=== PATIENT | male | born 1980 | race Caucasian/White ===

== ENCOUNTER 2018-06-07 15:41 | Observation (INO) ==
--- NOTE | 2018-06-07 17:50 | Emergency Department Note ---
Disposition Clinical Impression: Dyspnea Disposition: Still a Patient Condition: Fair Referrals: Valencia Izaguirre [Primary Care Provider] - Forms: ED Satisfaction Letter SOB HPI - General Chief Complaint: ED Shortness of Breath/Dyspnea Stated Complaint: KYLE Time Seen by Provider: 06/07/18 17:48 Source: patient Limitations: no limitations Nursing Notes Reviewed: Yes Vital Signs Reviewed: Yes - History of Present Illness Patient is a 37-year-old male who presents to [facility] ED with a chief complaint of chest pain and difficulty breathing. States his symptoms started around Thursday with the chest pain. States the pain is worse with deep breathing and has some shortness of breath especially with exertion. Patient does have a history of DVT. Family history significant for multiple pulmonary embolisms and DVTs. No recent surgeries. Pt Subjective Complaint: shortness of breath, pain with inspiration Onset (ago): day(s) Context: recent illness Severity: moderate Consistency/Duration: gradually worsening Improves with: nothing Worsens with: exertion Known history of: DVT Associated symptoms: Reports: chest pain Treatment prior to arrival: none Cough present: No - Related Data Allergies Allergy/AdvReac Type Severity Reaction Status Date / Time No Known Allergies Allergy Unverified 06/07/18 16:13 All systems ED: reviewed and negative except as stated. Past Medical History - Past Medical History Attestation: Yes The following information was validated with the patient. Source: patient Medical history: Reports: DVT, other Psychiatric history: Reports: no psych history - Social History Smoking Status: Current some day smoker Smokeless Tobacco Status: No Alcohol use: Reports: none Drug use: Reports: none Physical Exam - General Limitations: no limitations General appearance: alert - Head Head exam: atraumatic, normocephalic, normal inspection - Eye Eye exam: Present: EOMI - ENT ENT exam: normal exam, normal oropharynx, mucous membranes moist - Neck Neck exam: Present: normal inspection, full ROM, trachea midline - Chest Chest inspection: Present: normal inspection, symmetric chest wall rise - Respiratory Respiratory exam: Present: normal lung sounds bilaterally - Cardiovascular Cardiovascular exam: Present: regular rate, normal rhythm, normal heart sounds - Abdominal Exam Abdominal exam: Present: soft, Non-Tender. Absent: tenderness, distention, guarding, rebound, rigidity - Extremities Exam Extremities exam: Present: normal inspection, full ROM. Absent: tenderness, pedal edema - Neurological Exam Neurological exam: Present: alert, oriented X3 - Psychiatric Psychiatric exam: Present: normal affect, normal mood - Skin Skin exam: Present: warm, dry, intact, normal color Course Course Narrative: Patient seen and examined. Chest pain and difficulty breathing. Basic lab work , d-dimer level, EKG and chest x-ray ordered in triage. - Reevaluation(s) Reevaluation #1: Patient's d-dimer level came back elevated at almost 15,000. Concern for possible pulmonary embolus. His oxygen saturation currently is 95% on room air. He is borderline tachycardic with heart rate 90s to low 100s. CTA of the chest ordered. Patient will be signed out to oncoming physician Dr. Pearce. Time: 18:36 Vital Signs Temperature 99.3 F 06/07/18 16:13 Pulse Rate 90 06/07/18 16:13 Respiratory Rate 20 06/07/18 16:13 Blood Pressure 115/78 06/07/18 16:13 O2 Sat by Pulse Oximetry 96 06/07/18 16:13 Temperature 99.3 F 06/07/18 16:13 Pulse Rate 107 06/07/18 17:59 Respiratory Rate 20 06/07/18 17:59 Blood Pressure 127/93 06/07/18 17:59 O2 Sat by Pulse Oximetry 95 06/07/18 17:59 Oxygen Delivery Oxygen Delivery Room Air Shortness of Breath/Dyspnea - Medical Records Medical records reviewed: Yes I reviewed the patient's medical records. - Lab Data Lab results reviewed: Yes I reviewed the patient's lab results. Result diagrams: 06/07/18 17:03 06/07/18 17:03 Lab Results 06/07/18 06/07/18 06/07/18 Range/Units 17:03 17:03 17:03 WBC 9.0 (4.3-11.1) K/mcL RBC 5.85 H (4.19-5.50) M/mcL Hgb 16.1 (12.9-16.9) g/dL Hct 46.4 (37.5-50.1) % MCV 79.3 L (83.0-100.0) fL MCH 27.5 L (28.0-33.3) pg MCHC 34.7 (31.6-35.5) g/dL RDW 12.6 (11.5-14.5) % Plt Count 201 (140-400) K/mcL MPV 10.2 (9.4-12.4) fL Immature Gran % 0.4 (0-4) % Seg Neutrophils % 57.8 % Lymphocytes % 19.7 % Monocytes % 8.5 % Eosinophils % 12.5 % Basophils % 1.1 % Neutrophils # 5.2 (1.6-8.9) K/mcL Lymphocytes # 1.8 (0.6-4.6) K/mcL Monocytes # 0.8 (0.0-1.3) K/mcL Eosinophils # 1.1 H (0.0-0.6) K/mcL Basophils # 0.1 (0.0-0.2) K/mcL D-Dimer 07535 H (0-500) ng/mLFEU Sodium 137 (136-145) mEq/L Potassium 3.9 (3.5-5.1) mEq/L Chloride 104 (98-107) mEq/L Carbon Dioxide 25 (23-29) mEq/L BUN 14 (6-20) mg/dL Creatinine 1.03 (0.70-1.30) mg/dL Est GFR ( Amer) > 60 (> 60) Est GFR (Non-Af Amer) > 60 (> 60) BUN/Creatinine Ratio 14 (6-26) Glucose 117 H (70-105) mg/dL Calculated Osmolality 286 (280-300) Calcium 9.4 (8.6-10.3) mg/dL Total Bilirubin 0.7 (0.3-1.0) mg/dL AST 31 (13-39) Units/L ALT 42 (7-52) Units/L Alkaline Phosphatase 79 (34-104) Units/L Serum Total Protein 7.8 (6.4-8.9) g/dL Albumin 4.4 (3.5-5.7) g/dL Globulin 3.4 (2.4-3.5) g/dL Albumin/Globulin Ratio 1.3 (1.1-2.2) - Radiology Data Radiology results reviewed: Yes I reviewed the patient's radiology results. Chest X-Ray 06/07/18 16:19 IMPRESSION: No acute cardiopulmonary process. D/ / 06/07/2018 16:39:37 Gasper Posey MD / sonia Interpreting Provider: Gasper Posey MD - EKG Data EKG attestation: Yes I reviewed and interpreted this EKG. EKG results narrative: EKG done at 1617 shows normal sinus rhythm with a rate of [address] elevation or depression. Normal axis. Prominent Q-wave noted in lead 3. Attestation Statement - Attestation Attestation: I, Vadim Jesus, examined this patient and my medical decision-making was reviewed with the [employer] PERSON/PA/Advanced Practice Nurse/Resident Physician. I agree with the documented findings, disposition and treatment plan as described except to the extent set forth below. 37-year-old presents emergency Department with concerns of chest pain and shortness of breath. Patient has a history of DVT and a strong family history of blood clots. He has been short of breath increasing over the past few days. He previously took anticoagulation for DVT however he is not currently taking anticoagulation medication. Patient has significantly elevated d-dimer. Patient care transferred pending CTA of the chest to rule out PE. Care transferred to Dr. Abernathy pending further care and evaluation and disposition.
[2018-06-07 17:57] LABS: Basophils # 0.1 K/mcL (0.0-0.2); Basophils % 1.1 %; Eosinophils # 1.1 K/mcL (0.0-0.6); Eosinophils % 12.5 %; Hematocrit 46.4 % (37.5-50.1); Hemoglobin 16.1 g/dL (12.9-16.9); Immature Granulocytes % 0.4 % (0-4); Lymphocytes # 1.8 K/mcL (0.6-4.6); Lymphocytes % 19.7 %; Mean Corpuscular HGB Conc 34.7 g/dL (31.6-35.5); Mean Corpuscular Hemoglobin 27.5 pg (28.0-33.3); Mean Corpuscular Volume 79.3 fL (83.0-100.0); Mean Platelet Volume 10.2 fL (9.4-12.4); Monocytes # 0.8 K/mcL (0.0-1.3); Monocytes % 8.5 %; Neutrophils # 5.2 K/mcL (1.6-8.9); Platelet Count 201 K/mcL (140-400); Red Blood Count 5.85 M/mcL (4.19-5.50); Red Cell Distribution Width 12.6 % (11.5-14.5); Segmented Neutrophils % 57.8 %
[2018-06-07 18:15] LABS: Alanine Aminotransferase 42 Units/L (7-52); Albumin 4.4 g/dL (3.5-5.7); Albumin/Globulin Ratio 1.3 (1.1-2.2); Alkaline Phosphatase 79 Units/L (34-104); Aspartate Amino Transferase 31 Units/L (13-39); BUN/Creatinine Ratio 14 (6-26); Bilirubin,Total 0.7 mg/dL (0.3-1.0); Blood Urea Nitrogen 14 mg/dL (6-20); Calcium 9.4 mg/dL (8.6-10.3); Carbon Dioxide 25 mEq/L (23-29); Chloride 104 mEq/L (98-107); Globulin 3.4 g/dL (2.4-3.5); Glucose 117 mg/dL (70-105); Osmolality,Calculated 286 (280-300); Potassium 3.9 mEq/L (3.5-5.1); Sodium 137 mEq/L (136-145); Total Protein 7.8 g/dL (6.4-8.9); eGFR For Non-African Americans > 60 (> 60)
[2018-06-07] MEDS: Isovue-370 500 ML INFUS..BTL IV ONE ×2 (19:15→19:18)
--- NOTE | 2018-06-07 19:18 | Emergency Department Note ---
Disposition Clinical Impression: Dyspnea Qualifiers: Dyspnea type: unspecified Qualified Code(s): R06.00 - Dyspnea, unspecified Pulmonary embolism Qualifiers: Pulmonary embolism type: other Chronicity: unspecified Acute cor pulmonale presence: with acute cor pulmonale Qualified Code(s): I26.09 - Other pulmonary embolism with acute cor pulmonale Disposition: Admitted As Inpatient Condition: Fair Referrals: Valencia Izaguirre [Primary Care Provider] - Forms: ED Satisfaction Letter Time of Disposition: 22:13 General Adult HPI - General Chief complaint: ED Shortness of Breath/Dyspnea Stated complaint: KYLE Time Seen by Provider: 06/07/18 17:48 Source: patient Limitations: no limitations - History of Present Illness HPI Narrative: Patient seen and examined. Patient was signed out by the prior provider please see their doctor patient with history of physical. Briefly, the patient is a 37 -year-old male who presents with dyspnea mostly with exertion over the past few days. Does have a family history of clotting disorders. At the time my evaluation the patient's resting comfortably in bed. Awaiting CTA chest. Pain Scale: 0 - Related Data Home Medications Medication Instructions Recorded Confirmed Febuxostat [Uloric] 40 mg PO DAILY 06/07/18 06/07/18 Indomethacin [Indomethacin] 50 mg PO TID PRN 06/07/18 06/07/18 Omeprazole [PriLOSEC] 20 mg PO DAILY 06/07/18 06/07/18 Allergies Allergy/AdvReac Type Severity Reaction Status Date / Time No Known Allergies Allergy Verified 06/07/18 20:36 Past Medical History - Past Medical History Medical history: Reports: DVT, other Psychiatric history: Reports: no psych history - Social History Smoking Status: Current some day smoker Smokeless Tobacco Status: No Alcohol use: Reports: none Drug use: Reports: none Physical Exam - General Limitations: no limitations General appearance: alert, in no apparent distress - Head Head exam: atraumatic, normal inspection - Eye Eye exam: Present: normal appearance - ENT ENT exam: normal exam - Neck Neck exam: Present: normal inspection, trachea midline - Chest Chest inspection: Present: normal inspection, symmetric chest wall rise - Respiratory Respiratory exam: Present: normal lung sounds bilaterally. Absent: respiratory distress - Cardiovascular Cardiovascular exam: Present: regular rate, normal rhythm - Abdominal Exam Abdominal exam: Present: soft, Non-Tender - Extremities Exam Extremities exam: Present: normal inspection. Absent: pedal edema - Back Exam Back exam: Present: normal inspection - Neurological Exam Neurological exam: Present: alert, oriented X3 - Skin Skin exam: Present: warm, dry, intact, normal color Course Course Narrative: Patient seen and examined. Patient's resting comfortably. No acute distress. No needs at this time. - Reevaluation(s) Reevaluation #1: Patient seen and examined. Updated on plan of care. Time: 20:27 Vital Signs Temperature 99.3 F 06/07/18 16:13 Pulse Rate 90 06/07/18 16:13 Respiratory Rate 20 06/07/18 16:13 Blood Pressure 115/78 06/07/18 16:13 O2 Sat by Pulse Oximetry 96 06/07/18 16:13 Temperature 99.3 F 06/07/18 16:13 Pulse Rate 74 06/07/18 21:29 Respiratory Rate 18 06/07/18 21:29 Blood Pressure 123/74 06/07/18 21:29 O2 Sat by Pulse Oximetry 95 06/07/18 21:29 Oxygen Delivery Oxygen Delivery Room Air Medical Decision Making - [facility] Narrative Medical decision making narrative: 37 year old male persists for evaluation of dyspnea. Patient was signed by the prior doctor. Patient is noted to have extensive bilateral PEs. Patient does have some right heart strain or on CT findings however but does not have lab values consistent with right heart strain. Patient's vitals are stable. Patient does not have a massive PE. Patient does have a submassive PE. Patient is appropriate for admission to the stepdown with cardiopulmonary monitoring. Patient's aware of this plan of care. Patient would benefit from an echo as well as hematology evaluation for coagulopathy. Patient would also benefit from lower extremity Doppler to ensure the extent of the clot burden. - Lab Data Lab results reviewed: Yes I reviewed the patient's lab results. Result diagrams: 06/07/18 19:48 06/07/18 17:03 Lab Results 06/07/18 06/07/18 06/07/18 Range/Units 17:03 17:03 17:03 WBC 9.0 (4.3-11.1) K/mcL RBC 5.85 H (4.19-5.50) M/mcL Hgb 16.1 (12.9-16.9) g/dL Hct 46.4 (37.5-50.1) % MCV 79.3 L (83.0-100.0) fL MCH 27.5 L (28.0-33.3) pg MCHC 34.7 (31.6-35.5) g/dL RDW 12.6 (11.5-14.5) % Plt Count 201 (140-400) K/mcL MPV 10.2 (9.4-12.4) fL Immature Gran % 0.4 (0-4) % Seg Neutrophils % 57.8 % Lymphocytes % 19.7 % Monocytes % 8.5 % Eosinophils % 12.5 % Basophils % 1.1 % Neutrophils # 5.2 (1.6-8.9) K/mcL Lymphocytes # 1.8 (0.6-4.6) K/mcL Monocytes # 0.8 (0.0-1.3) K/mcL Eosinophils # 1.1 H (0.0-0.6) K/mcL Basophils # 0.1 (0.0-0.2) K/mcL PT (9.4-12.1) Seconds INR D-Dimer 24598 H (0-500) ng/mLFEU Heparin Anti-Xa, Unfract (0.30-0.70) IU/mL Sodium 137 (136-145) mEq/L Potassium 3.9 (3.5-5.1) mEq/L Chloride 104 (98-107) mEq/L Carbon Dioxide 25 (23-29) mEq/L BUN 14 (6-20) mg/dL Creatinine 1.03 (0.70-1.30) mg/dL Est GFR ( Amer) > 60 (> 60) Est GFR (Non-Af Amer) > 60 (> 60) BUN/Creatinine Ratio 14 (6-26) Glucose 117 H (70-105) mg/dL Calculated Osmolality 286 (280-300) Calcium 9.4 (8.6-10.3) mg/dL Total Bilirubin 0.7 (0.3-1.0) mg/dL AST 31 (13-39) Units/L ALT 42 (7-52) Units/L Alkaline Phosphatase 79 (34-104) Units/L B-Natriuretic Peptide (Less than 100) pg/mL Serum Total Protein 7.8 (6.4-8.9) g/dL Albumin 4.4 (3.5-5.7) g/dL Globulin 3.4 (2.4-3.5) g/dL Albumin/Globulin Ratio 1.3 (1.1-2.2) 06/07/18 06/07/18 06/07/18 Range/Units 19:48 19:48 19:48 WBC 7.6 (4.3-11.1) K/mcL RBC 5.30 (4.19-5.50) M/mcL Hgb 14.5 D (12.9-16.9) g/dL Hct 42.1 (37.5-50.1) % MCV 79.4 L (83.0-100.0) fL MCH 27.4 L (28.0-33.3) pg MCHC 34.4 (31.6-35.5) g/dL RDW 12.8 (11.5-14.5) % Plt Count 161 (140-400) K/mcL MPV 10.1 (9.4-12.4) fL Immature Gran % (0-4) % Seg Neutrophils % % Lymphocytes % % Monocytes % % Eosinophils % % Basophils % % Neutrophils # (1.6-8.9) K/mcL Lymphocytes # (0.6-4.6) K/mcL Monocytes # (0.0-1.3) K/mcL Eosinophils # (0.0-0.6) K/mcL Basophils # (0.0-0.2) K/mcL PT 14.7 H (9.4-12.1) Seconds INR 1.3 D-Dimer (0-500) ng/mLFEU Heparin Anti-Xa, Unfract 0.01 L (0.30-0.70) IU/mL Sodium (136-145) mEq/L Potassium (3.5-5.1) mEq/L Chloride (98-107) mEq/L Carbon Dioxide (23-29) mEq/L BUN (6-20) mg/dL Creatinine (0.70-1.30) mg/dL Est GFR ( Amer) (> 60) Est GFR (Non-Af Amer) (> 60) BUN/Creatinine Ratio (6-26) Glucose (70-105) mg/dL Calculated Osmolality (280-300) Calcium (8.6-10.3) mg/dL Total Bilirubin (0.3-1.0) mg/dL AST (13-39) Units/L ALT (7-52) Units/L Alkaline Phosphatase (34-104) Units/L B-Natriuretic Peptide 12 (Less than 100) pg/mL Serum Total Protein (6.4-8.9) g/dL Albumin (3.5-5.7) g/dL Globulin (2.4-3.5) g/dL Albumin/Globulin Ratio (1.1-2.2) - Radiology Data Radiology results reviewed: Yes I reviewed the patient's radiology results. Chest X-Ray 06/07/18 16:19 IMPRESSION: No acute cardiopulmonary process. D/ / 06/07/2018 16:39:37 Gasper Posey MD / sonia Interpreting Provider: Gasper Posey MD Chest CTA 06/07/18 18:32 IMPRESSION: Extensive acute bilateral pulmonary emboli as described above. As described above, there is enlargement of the right ventricle with RV/LV ratio greater than 1. These findings suggest possible right heart strain/elevated right heart pressures. Clinical correlation is recommended. Consider further evaluation with echocardiography to better evaluate heart function. Small area of non solid opacity inferolateral right lower lobe may reflect atelectasis or pulmonary infarct or a small amount of airspace disease. There is a 3 mm size right lower lobe pulmonary nodule. Critical results were called by Dr. Georgi Salmon MD to Dr. Abernathy On 06/07/2018 at 19:48. D/ / 06/07/2018 20:01:42 Georgi Salmon MD / della Interpreting Provider: Georgi Salmon MD berly - Amberly Situation: Demographics Background: Presenting Complaint Assessment: Vital Signs, Course and respsone to treatment, Patient/Family Expectation Recommendation: Barrier(s) to disposition, Recommendation based on pending studies, treatments, or consults SBrett Report Given to: Dr. Jarrod Gaming Repor Time: 22:11
[2018-06-07] MEDS ORDERED: *HR* Heparin 5,000 UNIT/ML VIAL IVP ONE (19:37)
[2018-06-07] MEDS ORDERED: *HR* Heparin 5,000 UNIT/ML VIAL IVP PRN ×2 (19:37)
--- NOTE | 2018-06-07 19:43 | Emergency Department Note ---
Disposition Clinical Impression: Dyspnea Qualifiers: Dyspnea type: unspecified Qualified Code(s): R06.00 - Dyspnea, unspecified Pulmonary embolism Qualifiers: Pulmonary embolism type: other Chronicity: unspecified Acute cor pulmonale presence: with acute cor pulmonale Qualified Code(s): I26.09 - Other pulmonary embolism with acute cor pulmonale Disposition: Admitted As Inpatient Condition: Fair Referrals: Valencia Izaguirre [Primary Care Provider] - Forms: ED Satisfaction Letter General Adult HPI - General Chief complaint: ED Shortness of Breath/Dyspnea Stated complaint: KYLE Time Seen by Provider: 06/07/18 17:48 Source: patient Limitations: no limitations Nursing Notes Reviewed: Yes Vital Signs Reviewed: Yes - History of Present Illness Pain Scale: 0 - Related Data Home Medications Medication Instructions Recorded Confirmed Febuxostat [Uloric] 40 mg PO DAILY 06/07/18 06/07/18 Indomethacin [Indomethacin] 50 mg PO TID PRN 06/07/18 06/07/18 Omeprazole [PriLOSEC] 20 mg PO DAILY 06/07/18 06/07/18 Allergies Allergy/AdvReac Type Severity Reaction Status Date / Time No Known Allergies Allergy Verified 06/07/18 20:36 Past Medical History - Past Medical History Medical history: Reports: DVT, other Psychiatric history: Reports: no psych history - Social History Smoking Status: Current some day smoker Smokeless Tobacco Status: No Alcohol use: Reports: none Drug use: Reports: none Physical Exam - General Limitations: no limitations General appearance: alert Course Vital Signs Temperature 99.3 F 06/07/18 16:13 Pulse Rate 90 06/07/18 16:13 Respiratory Rate 20 06/07/18 16:13 Blood Pressure 115/78 06/07/18 16:13 O2 Sat by Pulse Oximetry 96 06/07/18 16:13 Temperature 99.3 F 06/07/18 16:13 Pulse Rate 74 06/07/18 21:29 Respiratory Rate 18 06/07/18 21:29 Blood Pressure 123/74 06/07/18 21:29 O2 Sat by Pulse Oximetry 95 06/07/18 21:29 Oxygen Delivery Oxygen Delivery Room Air Medical Decision Making - Medical Records Medical records reviewed: Yes I reviewed the patient's medical records. - Lab Data Lab results reviewed: Yes I reviewed the patient's lab results. Result diagrams: 06/07/18 19:48 06/07/18 17:03 Lab Results 06/07/18 06/07/18 06/07/18 Range/Units 17:03 17:03 17:03 WBC 9.0 (4.3-11.1) K/mcL RBC 5.85 H (4.19-5.50) M/mcL Hgb 16.1 (12.9-16.9) g/dL Hct 46.4 (37.5-50.1) % MCV 79.3 L (83.0-100.0) fL MCH 27.5 L (28.0-33.3) pg MCHC 34.7 (31.6-35.5) g/dL RDW 12.6 (11.5-14.5) % Plt Count 201 (140-400) K/mcL MPV 10.2 (9.4-12.4) fL Immature Gran % 0.4 (0-4) % Seg Neutrophils % 57.8 % Lymphocytes % 19.7 % Monocytes % 8.5 % Eosinophils % 12.5 % Basophils % 1.1 % Neutrophils # 5.2 (1.6-8.9) K/mcL Lymphocytes # 1.8 (0.6-4.6) K/mcL Monocytes # 0.8 (0.0-1.3) K/mcL Eosinophils # 1.1 H (0.0-0.6) K/mcL Basophils # 0.1 (0.0-0.2) K/mcL PT (9.4-12.1) Seconds INR D-Dimer 79463 H (0-500) ng/mLFEU Heparin Anti-Xa, Unfract (0.30-0.70) IU/mL Sodium 137 (136-145) mEq/L Potassium 3.9 (3.5-5.1) mEq/L Chloride 104 (98-107) mEq/L Carbon Dioxide 25 (23-29) mEq/L BUN 14 (6-20) mg/dL Creatinine 1.03 (0.70-1.30) mg/dL Est GFR ( Amer) > 60 (> 60) Est GFR (Non-Af Amer) > 60 (> 60) BUN/Creatinine Ratio 14 (6-26) Glucose 117 H (70-105) mg/dL Calculated Osmolality 286 (280-300) Calcium 9.4 (8.6-10.3) mg/dL Total Bilirubin 0.7 (0.3-1.0) mg/dL AST 31 (13-39) Units/L ALT 42 (7-52) Units/L Alkaline Phosphatase 79 (34-104) Units/L B-Natriuretic Peptide (Less than 100) pg/mL Serum Total Protein 7.8 (6.4-8.9) g/dL Albumin 4.4 (3.5-5.7) g/dL Globulin 3.4 (2.4-3.5) g/dL Albumin/Globulin Ratio 1.3 (1.1-2.2) 06/07/18 06/07/18 06/07/18 Range/Units 19:48 19:48 19:48 WBC 7.6 (4.3-11.1) K/mcL RBC 5.30 (4.19-5.50) M/mcL Hgb 14.5 D (12.9-16.9) g/dL Hct 42.1 (37.5-50.1) % MCV 79.4 L (83.0-100.0) fL MCH 27.4 L (28.0-33.3) pg MCHC 34.4 (31.6-35.5) g/dL RDW 12.8 (11.5-14.5) % Plt Count 161 (140-400) K/mcL MPV 10.1 (9.4-12.4) fL Immature Gran % (0-4) % Seg Neutrophils % % Lymphocytes % % Monocytes % % Eosinophils % % Basophils % % Neutrophils # (1.6-8.9) K/mcL Lymphocytes # (0.6-4.6) K/mcL Monocytes # (0.0-1.3) K/mcL Eosinophils # (0.0-0.6) K/mcL Basophils # (0.0-0.2) K/mcL PT 14.7 H (9.4-12.1) Seconds INR 1.3 D-Dimer (0-500) ng/mLFEU Heparin Anti-Xa, Unfract 0.01 L (0.30-0.70) IU/mL Sodium (136-145) mEq/L Potassium (3.5-5.1) mEq/L Chloride (98-107) mEq/L Carbon Dioxide (23-29) mEq/L BUN (6-20) mg/dL Creatinine (0.70-1.30) mg/dL Est GFR ( Amer) (> 60) Est GFR (Non-Af Amer) (> 60) BUN/Creatinine Ratio (6-26) Glucose (70-105) mg/dL Calculated Osmolality (280-300) Calcium (8.6-10.3) mg/dL Total Bilirubin (0.3-1.0) mg/dL AST (13-39) Units/L ALT (7-52) Units/L Alkaline Phosphatase (34-104) Units/L B-Natriuretic Peptide 12 (Less than 100) pg/mL Serum Total Protein (6.4-8.9) g/dL Albumin (3.5-5.7) g/dL Globulin (2.4-3.5) g/dL Albumin/Globulin Ratio (1.1-2.2) - Radiology Data Radiology results reviewed: Yes I reviewed the patient's radiology results. Chest X-Ray 06/07/18 16:19 IMPRESSION: No acute cardiopulmonary process. D/ / 06/07/2018 16:39:37 Gasper Posey MD / [facility] Interpreting Provider: Gasper Posey MD Chest CTA 06/07/18 18:32 IMPRESSION: Extensive acute bilateral pulmonary emboli as described above. As described above, there is enlargement of the right ventricle with RV/LV ratio greater than 1. These findings suggest possible right heart strain/elevated right heart pressures. Clinical correlation is recommended. Consider further evaluation with echocardiography to better evaluate heart function. Small area of non solid opacity inferolateral right lower lobe may reflect atelectasis or pulmonary infarct or a small amount of airspace disease. There is a 3 mm size right lower lobe pulmonary nodule. Critical results were called by Dr. Georgi Salmon MD to Dr. Abernathy On 06/07/2018 at 19:48. D/ / 06/07/2018 20:01:42 Georgi Salmon MD / [facility] Interpreting Provider: Georgi Salmon MD Critical Care Time Critical Care Time: Yes Total Critical Care Time: 40 Attestation: Critical care performed: Time is exclusive of separately billable procedures. Time includes: direct patient care, patient reassessment, coordination of patient care, interpretation of data (laboratory data, radiology data, and respiratory data), review of patient's medical records, medical consultation and documentation of patient care. Procedures included in critical care time: Procedures excluded from critical care time: Attestation Statement - Attestation Attestation: I, Gab Abernathy MD, personally evaluated this patient and discussed their management with the resident physician. I reviewed the resident's note and agree with the documented findings, medical decision making, and plan of care. This patient was signed out at shift change from Dr. Chavez and Dr. Vadim Jesus. Please refer to their notes for complete details of history and physical examination. Patient is a 37-year-old male who presented with a complaint of shortness of breath for about 4 days prior to arrival but worse for the past 2 days. No cough or chest pain. No leg pain or swelling. He does have a prior history of DVT out 10 years ago. Workup revealed a markedly elevated d-dimer and at shift change patient is awaiting a CTA of the chest. On examination patient is a well-developed obese male in no acute distress. He is alert and oriented 3. There is no cyanosis or diaphoresis. Vital signs normal with a heart rate in the 70s and oxygen saturation 97% on room air at time of my examination. No blood pressure. Chest is nontender to palpation. Breath sounds are clear and equal bilaterally. Heart regular rate and rhythm. Abdomen soft and nontender with normal bowel sounds. No calf tenderness or swelling. Negative Homans sign bilaterally. Labs reviewed. Markedly elevated d-dimer. Otherwise unremarkable. Chest x- ray negative. CTA of the chest showed extensive bilateral pulmonary emboli with mild enlargement of the right heart. Heparin bolus and infusion initiated. The hospitalist, Dr. Garay, was consulted and accepted admission of the patient.
[2018-06-07 19:59] LABS: Hematocrit 42.1 % (37.5-50.1); Mean Corpuscular HGB Conc 34.4 g/dL (31.6-35.5); Mean Corpuscular Hemoglobin 27.4 pg (28.0-33.3); Mean Corpuscular Volume 79.4 fL (83.0-100.0); Mean Platelet Volume 10.1 fL (9.4-12.4); Platelet Count 161 K/mcL (140-400); Red Cell Distribution Width 12.8 % (11.5-14.5)
[2018-06-07 20:00] LABS: Hemoglobin 14.5 g/dL (12.9-16.9)
[2018-06-07] MEDS: Heparin 25,000 UNIT/500 ML D5W 25,000 UNIT/500 ML BAG IVC SCH (20:00)
[2018-06-07 20:09] LABS: Heparin anti-factor XA UFH 0.01 IU/mL (0.30-0.70); INR 1.3; Prothrombin Time 14.7 Seconds (9.4-12.1)
[2018-06-08] MEDS ORDERED: Naloxone 0.4 MG/ML INJ IVP PRN (02:17)
[2018-06-08] MEDS ORDERED: Acetaminophen 325 MG TABLET PO PRN (02:17)
--- NOTE | 2018-06-08 02:35 | Internal Med History&Physical ---
Date of Encounter: 06/08/18 Time of Encounter: 02:30 Internal Medicine - H&P: HPI Chief complaint: "Short of breath" Admitted From: Emergency Dept Plans for Post Hospital Care: Home History of present illness: Mr. Montano is a 37 year old male who presented to ED today with 1-week history of worsening dyspnea with exertion. He states that he first noticed SOB last week. This weekend, he noticed that he became SOB after walking up 8 stairs. He went to work yesterday and again noticed SOB. He spoke with a family member who is EMT, who advised him to come to ED. Patient states that he has extensive family history of DVT and PE. He has personal history of DVT several years ago. He was anticoagulated with coumadin and then xarelto at that time. He was taken off of anticoagulation by his PCP 2 years ago. He has not had any issues until now. In the ED, CTA chest showed bilateral pulmonary emboli with heart strain. [place] [id number]. His only PMH is gout and GERD. He was started on heparin drip in the ED. At the time of my examination, he is resting comfortably in bed. He denies any fever, chills, chest pain, SOB, nausea, vomiting, abdominal pain, changes in bladder, or changes in bowels. He has no complaints at this time. Past Med Surg Social Fam HX - Past Medical History Attestation: Yes The following information was validated with the patient. Source: patient Medical history: DVT, other Additional medical history: gout Psychiatric history: no psych history - Past Surgical History Surgical History: cholecystectomy Additional surgical history: cyst removed - Social History Smoking Status: Current some day smoker Packs per day: 0 Smokeless Tobacco Status: No Alcohol use: none Drug use: none - Family History Mother Living Status: Age at : 58 Cause of : Sepsis Hx Family Cancer: Yes Father Living Status: Cause of : cancer Hx Family Cancer: Yes - Additional Family History Additional family history: Family history reviewed with patient. Internal Medicine - H&P: Meds Febuxostat [Uloric] 40 mg PO DAILY 06/07/18 [History] Indomethacin [Indomethacin] 50 mg PO TID PRN 06/07/18 [History] Omeprazole [PriLOSEC] 20 mg PO DAILY 06/07/18 [History] 3 Allergy/AdvReac Type Severity Reaction Status Date / Time No Known Allergies Allergy Verified 06/07/18 20:36 All Systems PM: A 10-system review of systems was performed and is negative for pertinent findings except as documented above in the HPI. - Constitutional Vitals: Temp Pulse Resp BP Pulse Ox 99.1 F 72 18 131/101 95 06/07/18 23:18 06/07/18 23:18 06/07/18 23:18 06/07/18 23:18 06/07/18 23:18 General appearance: Present: cooperative, A&O X 3, pleasant, no acute distress, obese, answers questions appropriately - Head Head exam: Present: atraumatic, normocephalic - Eye Eye exam: Present: EOMI, PERRL. Absent: conjunctival injection, nystagmus, scleral icterus - ENT ENT exam: Present: mucous membranes moist, normal external ear exam, normal oropharynx - Neck Neck exam general surgery: Present: supple, trachea midline. Absent: lymphadenopathy, tenderness, thyromegaly - Respiratory Respiratory exam: Present: CTAB. Absent: accessory muscle use, rales, rhonchi, wheezes Additional comments: Normal WOB - Cardiovascular Cardiovascular exam: Present: RRR, +S1, +S2. Absent: diastolic murmur, gallop, rubs, systolic murmur Additional comments: No BLE edema - GI/Abdominal GI/Abdominal exam: Present: normal bowel sounds, soft. Absent: distended, hepatomegaly, mass, splenomegaly, tenderness - Extremities Exam Extremities exam: Present: normal capillary refill, radial pulses palpable and symmetrical. Absent: calf tenderness, cyanotic, joint swelling, tenderness, warm - Neurological Exam Neurological exam: Present: alert, CN II-XII intact, oriented X3, no focal deficits, strengths equal and symetr throughout. Absent: motor sensory deficit , facial droop, speech deficit - Psychiatric Psychiatric exam: Present: normal affect, normal mood. Absent: agitated, anxious, depressed - Skin Skin exam: Present: dry, intact, warm. Absent: cyanosis, rash Internal Med - H&P Results - Labs CBC & Chem 7: 06/07/18 19:48 06/07/18 17:03 - Assessment and plan (1) Pulmonary embolism Current Visit: Yes Status: Acute Assessment and plan: Bilateral pulmonary emboli with heart strain. Previous history of DVT was anticoagulated with coumdain and then xarelto. Taken off of anticoagulation 2 years ago. Has family history of hypercoagulability. Will admit for observation with telemetry. Start supplemental O2 PRN. Currently on room air with no distress. Obtain ECHO in AM to evaluate heart strain. Continue heparin drip; consider transitioning to xarelto tomorrow if respiratory status stable. Consult SW to confirm NOAC coverage by insurance. Obtain hypercoagulability panel. Consult PT/OT to ambulate patient and make sure he does not have dyspnea on exertion. Qualifiers: Pulmonary embolism type: other Chronicity: unspecified Acute cor pulmonale presence: with acute cor pulmonale Qualified Code(s): I26.09 - Other pulmonary embolism with acute cor pulmonale (2) Gout Current Visit: Yes Status: Chronic Assessment and plan: Continue home medications. Qualifiers: Gout site: unspecified site Gout etiology: unspecified cause Chronicity: unspecified Qualified Code(s): M10.9 - Gout, unspecified (3) GERD (gastroesophageal reflux disease) Current Visit: Yes Status: Chronic Assessment and plan: Continue home medications. Qualifiers: Esophagitis presence: without esophagitis Qualified Code(s): K21.9 - Gastro -esophageal reflux disease without esophagitis (4) Nicotine dependence Current Visit: Yes Status: Chronic Assessment and plan: Counselled on smoking cessation. Not interested in nicotine replacement therapy at this time. Qualifiers: Nicotine product type: cigarettes Substance use status: unspecified nicotine-induced disorder Qualified Code(s): F17.219 - Nicotine dependence, cigarettes, with unspecified nicotine-induced disorders (5) DVT prophylaxis Current Visit: Yes Status: Acute Assessment and plan: Start SCDs and continue heparin drip as per above. - Time Spent With Patient Total time spent is greater than 50% in coordination of care (as documented) at patient's floor/unit and/or counseling patient: less than 15 minutes
[2018-06-08 03:35] LABS: Basophils # 0.1 K/mcL (0.0-0.2); Eosinophils # 1.2 K/mcL (0.0-0.6); Eosinophils % 15.2 %; Hematocrit 41.8 % (37.5-50.1); Hemoglobin 14.9 g/dL (12.9-16.9); Immature Granulocytes % 0.4 % (0-4); Lymphocytes # 2.3 K/mcL (0.6-4.6); Lymphocytes % 28.7 %; Mean Corpuscular HGB Conc 35.6 g/dL (31.6-35.5); Mean Corpuscular Hemoglobin 28.2 pg (28.0-33.3); Mean Platelet Volume 9.8 fL (9.4-12.4); Monocytes # 0.7 K/mcL (0.0-1.3); Monocytes % 8.6 %; Neutrophils # 3.7 K/mcL (1.6-8.9); Platelet Count 171 K/mcL (140-400); Red Blood Count 5.29 M/mcL (4.19-5.50); Red Cell Distribution Width 12.5 % (11.5-14.5); Segmented Neutrophils % 46.1 %
[2018-06-08 03:46] LABS: Activated Partial Thrombo Time 77.1 Seconds (26.0-36.0)
[2018-06-08 03:54] LABS: BUN/Creatinine Ratio 14 (6-26); Blood Urea Nitrogen 13 mg/dL (6-20); Carbon Dioxide 24 mEq/L (23-29); Chloride 105 mEq/L (98-107); Chol/HDL Ratio 3.9 (0-4.9); Glucose 140 mg/dL (70-105); Osmolality,Calculated 286 (280-300); Potassium 3.5 mEq/L (3.5-5.1); Sodium 137 mEq/L (136-145); eGFR For Non-African Americans > 60 (> 60)
[2018-06-08] MEDS: Heparin 25,000 UNIT/500 ML D5W 25,000 UNIT/500 ML BAG IVC SCH ×2 (07:42→18:16)
[2018-06-08] MEDS: Febuxostat [Uloric] 40 MG PO SCH (07:43)
--- NOTE | 2018-06-08 12:55 | Internal Med Progress Note ---
Hospitalist Progress Note - Encounter Date of Encounter: 06/08/18 Time of Encounter: 12:54 - Subjective Interval History: Patient denied chest pain, shortness of breath, fever, chills, nausea, vomiting , headache, dizziness, abdominal pain, urinary bowel complaint. at bedside. Vitals are stable. Reviewed the lab. On heparin drip. - Exam Vitals: Temp Pulse Resp BP Pulse Ox 98.3 F 71 16 113/89 97 06/08/18 10:56 06/08/18 11:00 06/08/18 11:00 06/08/18 10:56 06/08/18 11:00 Exam: General appearance: No acute distress, A&O X 3 Head exam: Atraumatic Eye exam: EOMI, PERRLA ENT exam: Moist oral mucosa Neck nontender, supple Respiratory exam: Clear to auscultation bilaterally Cardiovascular exam: Regular rate and rhythm, no systolic murmur Abdominal exam: Soft, nontender, nondistended, positive bowel sounds Extremities exam: No calf tenderness, no pedal edema Present: Skin-no rash, warm, dry, intact Neurological exam: Alert, awake, oriented 3, CN II-XII intact, no focal deficits. No facial droop. Normal speech. Normal gait. Romberg sign negative - Assessment and Plan (1) Pulmonary embolism Current Visit: Yes Status: Acute Assessment and Plan: Bilateral pulmonary emboli with heart strain on CT PE. Previous history of DVT was anticoagulated with coumdain and then xarelto. Taken off of anticoagulation 2 years ago. Strong family history of hypercoagulability. Patient hemodynamically and clinically stable not requiring oxygen. Echocardiogram ordered. Consulted diesel locomotive firer and phone operator. Continue IV heparin drip for now but plan to switch xarelto. Ordered hypercoagulability panel. Consulted PT/OT (2) Gout Current Visit: Yes Status: Chronic Assessment and Plan: Continue home medications. No acute flareup (3) GERD (gastroesophageal reflux disease) Current Visit: Yes Status: Chronic Assessment and Plan: Continue home medications. (4) DVT prophylaxis Current Visit: Yes Status: Acute Assessment and Plan: continue heparin drip (5) Nicotine dependence Current Visit: Yes Status: Chronic Assessment and Plan: Counselled on smoking cessation. Not interested in nicotine replacement therapy at this time. - Time Spent with Patient Total time spent is greater than 50% in coordination of care (as documented) at patient's floor/unit and/or counseling patient: 25 - 35 minutes Internal Medicine: Result - Labs CBC & Chem 7: 06/08/18 03:18 06/08/18 03:18 Labs: Short CBC 06/08/18 Range/Units 03:18 WBC 8.1 (4.3-11.1) K/mcL Hgb 14.9 (12.9-16.9) g/dL Hct 41.8 (37.5-50.1) % Plt Count 171 (140-400) K/mcL Neutrophils # 3.7 (1.6-8.9) K/mcL BMP 06/08/18 03:18 Sodium 137 Potassium 3.5 Chloride 105 Carbon Dioxide 24 BUN 13 Creatinine 0.90 Glucose 140 H Calcium 9.0 - ABG Interpretation ABG results: PT/INR, D-dimer PT 14.7 Seconds (9.4-12.1) H 06/07/18 19:48 D-Dimer 05805 ng/mLFEU (0-500) H 06/07/18 17:03 - Impressions Impressions Echocardiogram 06/07/18 23:44 Impressions: LVEF 60%. Indeterminate diastolic dysfunction. Normal right ventricular size and function. RVOT is dilated. Mild tricuspid regurgitation. Mild pulmonary hypertension. The IVC is dilated. Left Ventricular Wall Motion: Rest Echo Findings All wall segments showed normal motion. Findings: Study Quality * Technically adequate exam. ECG Findings * Normal sinus rhythm. Left Ventricle * LVEF 60%. * Normal LV chamber size, wall thickness and function. * Indeterminate diastolic dysfunction. Right Ventricle * Normal right ventricular size and function. RVOT is dilated. Left Atrium * Normal left atrial size. Right Atrium * Normal right atrial size. Aortic Valve * No aortic regurgitation. * Aortic valve not well visualized. * No aortic stenosis. Mitral Valve * Normal mitral valve structure. * No mitral stenosis. * Trace mitral regurgitation. Tricuspid Valve * Tricuspid valve not well visualized. * Mild tricuspid regurgitation. * Estimated RA pressure is 8 mmHg. * Estimated RVSP is 46 mmHg. * Mild pulmonary hypertension. Pulmonic Valve * Pulmonic valve is not well visualized. * No pulmonic stenosis. * No pulmonic regurgitation. Pulmonary Artery * Pulmonary artery not well visualized. Aorta * Normally sized aortic root. Pericardium * There is no pericardial effusion present. Interatrial Septum * No evidence of PFO by color Doppler. IVC * The IVC is dilated. * > 50% respiratory change - VTE Documentation of Mechanical Device: Intermittent pneumatic compression device Consult Discharge Plan - Plan Referrals: Valencia Izaguirre [Primary Care Provider] - 06/14/18 11:30 am Prescriptions: Rivaroxaban [Xarelto] 1 dose PO AD 30 Days #1 pack (1) Pulmonary embolism Qualifiers: Pulmonary embolism type: other Chronicity: unspecified Acute cor pulmonale presence: with acute cor pulmonale Qualified Code(s): I26.09 - Other pulmonary embolism with acute cor pulmonale (2) Gout Qualifiers: Gout site: unspecified site Gout etiology: unspecified cause Chronicity: unspecified Qualified Code(s): M10.9 - Gout, unspecified (3) GERD (gastroesophageal reflux disease) Qualifiers: Esophagitis presence: without esophagitis Qualified Code(s): K21.9 - Gastro- esophageal reflux disease without esophagitis (5) Nicotine dependence Qualifiers: Nicotine product type: cigarettes Substance use status: unspecified nicotine- induced disorder Qualified Code(s): F17.219 - Nicotine dependence, cigarettes, with unspecified nicotine-induced disorders
--- NOTE | 2018-06-08 13:57 | Pulmonology Consult Note ---
<Sedrick Gregory - Last Filed: 06/08/18 16:34> Date of Encounter: 06/08/18 Time of Encounter: 13:51 Assessment and Plan (1) Pulmonary embolism Current Visit: Yes Status: Acute CTA shows pulmonary embolism within the left and right pulmonary arteries. Echo shows mildly dilated right ventricular outflow tract but no evidence of right heart strain, BNP was normal, troponin pending. Patient is currently asymptomatic without tachycardia or hypoxia. Agree with pending hypercoagulable workup. Given that this is the patient's second occurrence of venous thromboembolic disease he will require lifelong anticoagulation. Given the patient's stable is reasonable to transition him to Xarelto and discharge at the discretion of the attending hospitalist. Recommend follow-up with hematology as an outpatient for further evaluation of his possible hypercoagulablity. Given his PE and body habitus, we recommend outpatient sleep study for evaluation for possible sleep apnea and PE along with untreated sleep apnea can increase RV strain and risk for RV dysfunction Qualifiers: Pulmonary embolism type: other Chronicity: acute Acute cor pulmonale presence: without acute cor pulmonale Qualified Code(s): I26.99 - Other pulmonary embolism without acute cor pulmonale (2) Pulmonary nodule Current Visit: Yes Status: Acute Patient has 3 mm nodule in the left lower lobe. It is well-circumscribed with no spiculation. Given the patient's smoking history recommend repeat CT at 12 months and if unchanged then no need for further follow-up per Fleischner Society guidelines. (3) Nicotine dependence Current Visit: Yes Status: Chronic Discussed complete cessation of smoking with patient. Qualifiers: Nicotine product type: other Substance use status: unspecified nicotine- induced disorder Qualified Code(s): F17.299 - Nicotine dependence, other tobacco product, with unspecified nicotine-induced disorders History of Present Illness Consult date: 06/08/18 Requesting physician: Ines Soto Reason for consult: pulmonary embolism Chief complaint: Dyspnea/Chest Pressure History of present illness: Patient is a 37-year-old male with history of DVT, gout who presents with shortness of breath and chest pressure. Patient states that he noticed these symptoms on Thursday when he had some substernal chest pressure and dyspnea, particularly with exertion. Patient reports that a few days prior to this he had been dealing with a gastrointestinal illness and thought his symptoms were related to this. His symptoms did not resolve and he presented to the emergency department last night. Patient denies any recent surgery, recent extended travel or immobility, personal history of malignancy. 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 He denies fever, chills, cough, hemoptysis. He states that his chest pressure and shortness of breath has resolved. He reports that he has been able to walk several laps around the unit without supplemental oxygen and without becoming symptomatic. Patient states that in 2007 he was diagnosed with a DVT in the right lower extremity. He states this developed around the time when he had his gallbladder out. He was initially treated with Lovenox which was then transitioned to Coumadin and ultimately transitioned to heparin. He states he was on anticoagulation for approximately 8 years which was managed by his primary care physician. After 8 years he went and saw a head of sales who did no further workup and recommend that he discontinue anticoagulation. This was approximately 6 months ago. Patient was never given a reason as to what caused his blood clot. He reports his brother has also had blood clots in the past. Denies any other family history of blood clots or sudden cardiac . Past Med Surg Social Fam HX - Past Medical History Medical history: DVT (2007), other Additional medical history: gout Psychiatric history: no psych history - Past Surgical History Surgical History: cholecystectomy Additional surgical history: cyst removed - Social History Smoking Status: Current some day smoker (occasional cigar when golfing) Packs per day: 0 Smokeless Tobacco Status: No Alcohol use: none Drug use: none - Family History Mother Living Status: Age at : 58 Cause of : Sepsis Hx Family Cancer: Yes Father Living Status: Cause of : cancer Hx Family Cancer: Yes Medications and Allergies Febuxostat [Uloric] 40 mg PO DAILY 06/07/18 [History] Indomethacin [Indomethacin] 50 mg PO TID PRN 06/07/18 [History] Omeprazole [PriLOSEC] 20 mg PO DAILY 06/07/18 [History] Rivaroxaban [Xarelto] 1 dose PO AD 30 Days #1 pack 06/08/18 [Rx] 3 Allergy/AdvReac Type Severity Reaction Status Date / Time No Known Allergies Allergy Verified 06/07/18 20:36 All Systems: The remainder of the systems were reviewed and are negative - Constitutional Constitutional: no chills, no fever(s), no weakness - EENT Nose, mouth and throat: no nasal congestion, no sore throat - Cardiovascular Cardiovascular: chest pain, chest pain with activity, dyspnea, dyspnea on exertion, leg edema (chronic), no diaphoresis, no edema, no palpitations, no rapid heart rate, no syncope - Respiratory Respiratory: dyspnea, no cough, no hemoptysis, no dyspnea on exertion, no chest congestion, no excessive phlegm production, no change in phlegm color - Gastrointestinal Gastrointestinal: no abdominal pain, no diarrhea, no nausea, no vomiting - Musculoskeletal Musculoskeletal: no numbness, no stiffness - Neurological Neurological: no confusion, no dizziness, no focal weakness, no frequent falls, no headache(s), no numbness, no syncope, no tingling Physical Examination Vital Signs: Vital Signs, Last 4 Hours Temp Pulse Resp BP Pulse Ox 06/08/18 13:00 73 16 98 06/08/18 11:00 71 16 97 06/08/18 10:56 98.3 F 71 18 113/89 95 General appearance: no acute distress, alert ENT: oropharynx moist Effort: normal Inspection: normal Auscultation: bilateral: clear Cardiovascular: regular rate and rhythm Gastrointestinal: normoactive bowel sounds, soft, non-tender Integumentary: normal Extremities: no edema, no clubbing, pulses normal, other (Right calf is slightly larger than left calf, patient reports this is been normal for him since his previous DVT) Musculoskeletal: no deformities normal mental status, non-focal exam mood appropriate, affect normal Results - Laboratory Findings CBC and BMP: 06/08/18 03:18 06/08/18 03:18 PT/INR, D-dimer PT 14.7 Seconds (9.4-12.1) H 06/07/18 19:48 D-Dimer 82061 ng/mLFEU (0-500) H 06/07/18 17:03 Abnormal lab findings: Abnormal lab results MCV 79.0 fL (83.0-100.0) L 06/08/18 03:18 MCHC 35.6 g/dL (31.6-35.5) H 06/08/18 03:18 Eosinophils # 1.2 K/mcL (0.0-0.6) H 06/08/18 03:18 PT 14.7 Seconds (9.4-12.1) H 06/07/18 19:48 APTT 77.1 Seconds (26.0-36.0) H 06/08/18 03:18 D-Dimer 73097 ng/mLFEU (0-500) H 06/07/18 17:03 Glucose 140 mg/dL (70-105) H 06/08/18 03:18 HDL Cholesterol 23 mg/dL (40-59) L 06/08/18 03:18 - Clinical Findings Intake & Output: Intake & Output 06/07/18 06/08/18 06/08/18 23:59 07:59 15:59 Intake Total 500 / 500 1299 / 1299 Output Total 700 / 700 Balance 500 / 500 599 / 599 Weight 156.1 kg 154.357 kg Consult Discharge Plan - Plan Referrals: Valencia Izaguirre [Primary Care Provider] - 06/14/18 11:30 am Prescriptions: Rivaroxaban [Xarelto] 1 dose PO AD 30 Days #1 pack <Arina Zuluaga M - Last Filed: 06/08/18 17:04> Date of Encounter: 06/08/18 All Systems: The remainder of the systems were reviewed and are negative Physical Examination Vital Signs: Vital Signs, Last 4 Hours Temp Pulse Resp BP Pulse Ox 06/08/18 16:29 98.4 F 70 18 128/82 97 06/08/18 15:25 67 Results - Laboratory Findings CBC and BMP: 06/08/18 03:18 06/08/18 03:18 PT/INR, D-dimer PT 14.7 Seconds (9.4-12.1) H 06/07/18 19:48 D-Dimer 02128 ng/mLFEU (0-500) H 06/07/18 17:03 Abnormal lab findings: Abnormal lab results MCV 79.0 fL (83.0-100.0) L 06/08/18 03:18 MCHC 35.6 g/dL (31.6-35.5) H 06/08/18 03:18 Eosinophils # 1.2 K/mcL (0.0-0.6) H 06/08/18 03:18 PT 14.7 Seconds (9.4-12.1) H 07/30/18 19:48 APTT 77.1 Seconds (26.0-36.0) H 06/08/18 03:18 D-Dimer 73513 ng/mLFEU (0-500) H 06/07/18 17:03 Glucose 140 mg/dL (70-105) H 06/08/18 03:18 HDL Cholesterol 23 mg/dL (40-59) L 06/08/18 03:18 - Clinical Findings Intake & Output: Intake & Output 06/08/18 06/08/18 06/08/18 07:59 15:59 23:59 Intake Total 500 / 500 1299 / 1299 Output Total 700 / 700 750 / 750 Balance 500 / 500 599 / 599 -750 / -750 Weight 154.357 kg - Attending Attestation I examined this patient and my medical decision-making was reviewed with the Resident Physician. I agree with the documented findings, disposition and treatment plan as described except to the extent set forth below. Patient seen and examined. Labs, radiology, chart personally reviewed. Agree with resident's history and physical, assessment, plan with following comments: DRAMATIC AGENT: Patient follows commands, Pulmonary: Acceptable oxygenation and ventilation. Patient is hemodynamically stable and looks likely will need long-term ventilation and patient had sleep study done at home about a year ago and he will continue to snore and explained to him about sleep disorder breathing especially in the presence of pulmonary embolism I believe with his body habitus it will be important to be reevaluated in the sleep lab. Patient will need to follow-up as outpatient. I would agree with anticoagulation at this time. Patient can follow-up as outpatient after his sleep study. Cardiovascular: stable
--- NOTE | 2018-06-08 16:19 | Oncology Inp Consult Note ---
<Leanna Chun - Last Filed: 06/08/18 17:05> Date of Encounter: 06/08/18 Time of Encounter: 16:00 Assessment and Plan (1) Pulmonary embolism Status: Acute Assessment and plan: CTA revealed extensive acute bilateral pulmonary emboli, enlargement of the right ventricle with RV/LV ratio greater than 1, a Small area of non solid opacity inferolateral right lower lobe may reflect atelectasis or pulmonary infarct or a small amount of airspace disease and a 3 mm size right lower lobe pulmonary nodule. BNP and troponin normal. Echo reveals LVEF 60%, normal right ventricular size/ function, RVOT is dilated, mild pulmonary hypertension. He is hemodynamically stable, no tachycardia or hypoxia. SOB on exertion has resolved, he has been ambulating around unit with no report of SOB. Preliminary venous doppler reveals a thrombus seen in the right distal iliac, right common femoral, right superficial femoral, right popliteal, posterior tibial and right peroneal vein. Plan: Continue heparin gtt overnight with planned transition to Xarelto likely tomorrow if he remains hemodynamically stable per hospitalist discretion Recommendation for anticoagulation indefinitely with history of one provoked DVT and now extensive PE with RLE DVT He has had prior hemophilia testing which was normal-discontinue hypercoag workup, patient will need lifelong AC regardless Will arrange for follow up with Dr. Cuba as an outpatient for continued monitoring while on AC Appreciate pulmonary recommendations, planning for outpatient sleep study to evaluate for sleep apnea in setting of RVOT dilation Qualifiers: Pulmonary embolism type: other Chronicity: acute Acute cor pulmonale presence: without acute cor pulmonale Qualified Code(s): I26.99 - Other pulmonary embolism without acute cor pulmonale (2) Pulmonary nodule Status: Acute Assessment and plan: CTA reveals 3 mm right lower lobe pulmonary nodule. Consider repeat CT per Fleischner Society guidelines. - Data of Consult Patient: new to practice Consult date: 06/08/18 Requesting Physician: Shaun Garay MD Primary Care Provider: Valencia Izaguirre - Consult Narrative Reason for consult: PE, DVT History of present illness: Mr. Montano is a 37 year old male with past medical history significant for RLE DVT and gout, presented to [facility] for SOB, fatigue and chest pressure. Symptoms became quite noticeable on Thursday and worsened until his presentation to ER last evening. CTA revealed extensive acute bilateral pulmonary emboli, enlargement of the right ventricle with RV/LV ratio greater than 1, a Small area of non solid opacity inferolateral right lower lobe may reflect atelectasis or pulmonary infarct or a small amount of airspace disease and a 3 mm size right lower lobe pulmonary nodule. BNP and troponin normal. Echo reveals LVEF 60%, normal right ventricular size/ function, RVOT is dilated, mild pulmonary hypertension. He is hemodynamically stable, no tachycardia or hypoxia. Preliminary venous doppler reveals a thrombus seen in the right distal iliac, right common femoral, right superficial femoral, right popliteal, posterior tibial and right peroneal vein. Mr. Montano has a history of RLE DVT in 2007 s/p cholecystectomy for which he was initially placed on coumadin for, later changed to pradaxa by Dr. Lam around the year of 2010. Following this he was released to follow up with his PCP for AC monitoring and later switched to Xarelto (unsure of reasoning, he did not experience any further blood clots during this time). Around the year of 2015 he followed up with a full time with [facility] who recommended he may discontinue his Xarelto. He has had no further issues with blood clots during this time until this event. He denies recent procedures, hospitalizations, hx of anabolic steroids or testosterone use or injury. He does report multiple 2 hour long car rides to [place] over the past few weeks to visit family. He smokes occasionally, only a few times a year when golfing. 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 Family history positive for brother who has also had multiple PE/DVT. Past Med Surg Social Fam HX - Past Medical History Medical history: DVT (2007), other Additional medical history: gout Psychiatric history: no psych history - Past Surgical History Surgical History: cholecystectomy Additional surgical history: cyst removed - Social History Smoking Status: Current some day smoker (occasional cigar when golfing) Packs per day: 0 Smokeless Tobacco Status: No Alcohol use: none Drug use: none - Family History Mother Living Status: Age at : 58 Cause of : Sepsis Hx Family Cancer: Yes Father Living Status: Cause of : cancer Hx Family Cancer: Yes Medications and Allergies Febuxostat [Uloric] 40 mg PO DAILY 06/07/18 [History] Indomethacin 50 mg PO TID PRN 06/07/18 [History] Omeprazole [PriLOSEC] 20 mg PO DAILY 06/07/18 [History] Rivaroxaban [Xarelto] 1 dose PO AD 30 Days #1 pack 06/08/18 [Rx] 3 Allergy/AdvReac Type Severity Reaction Status Date / Time No Known Allergies Allergy Verified 06/07/18 20:36 Constitutional: Present: as per HPI, fatigue. Absent: anorexia, chills, fever(s ), night sweats, weight loss Eyes: Absent: change in vision Nose, mouth and throat: Absent: dysphagia Cardiovascular: Present: as per HPI. Absent: chest pain, edema Respiratory: Present: as per HPI, dyspnea on exertion. Absent: hemoptysis, pain on inspiration Gastrointestinal: Absent: abdominal pain, hematemesis, hematochezia, melena, nausea, vomiting Additional comments: denies urinary difficulty Musculoskeletal: Present: as per HPI, muscle weakness Integumentary: Absent: rash, wounds Neurological: Absent: focal weakness, frequent falls Hematologic/Lymphatic: Present: as per HPI Oncology - Exam - Constitutional Vitals: Temp Pulse Resp BP Pulse Ox 98.3 F 67 16 113/89 98 06/08/18 10:56 06/08/18 15:25 06/08/18 13:00 06/08/18 10:56 06/08/18 13:00 General appearance: cooperative, no acute distress, no febrile - Head Head exam: Present: atraumatic - ENT ENT exam: Present: mucous membranes moist - Respiratory Respiratory exam: Present: CTAB. Absent: respiratory distress - Cardiovascular Cardiovascular exam: Present: RRR, +S1, +S2 - GI/Abdominal GI/Abdominal exam: Present: normal bowel sounds, soft. Absent: guarding, rebound, tenderness - Extremities Exam Extremities exam: Present: normal inspection. Absent: calf tenderness - Neurological Exam Neurological exam: Present: alert, oriented X3, no focal deficits, strengths equal and symetr throughout - Psychiatric Psychiatric exam: Present: normal affect, normal mood - Skin Skin exam: Present: dry, intact, normal color, warm Oncology - Results Labs: 3 06/08/18 06/08/18 06/08/18 13:40 07:44 03:18 WBC RBC Hgb Hct MCV MCH MCHC RDW Plt Count MPV Immature Gran % Seg Neutrophils % Lymphocytes % Monocytes % Eosinophils % Basophils % Neutrophils # Lymphocytes # Monocytes # Eosinophils # Basophils # APTT Fibrinogen Heparin Anti-Xa, Unfract 0.58 Sodium 137 Potassium 3.5 Chloride 105 Carbon Dioxide 24 BUN 13 Creatinine 0.90 Est GFR ( Amer) > 60 Est GFR (Non-Af Amer) > 60 BUN/Creatinine Ratio 14 Glucose 140 H Calculated Osmolality 286 Calcium 9.0 Troponin I < 0.03 Triglycerides Cholesterol LDL Cholesterol, Calc VLDL Cholesterol, Calc HDL Cholesterol Cholesterol/HDL Ratio 3 06/08/18 06/08/18 06/08/18 03:18 03:18 03:18 WBC 8.1 RBC 5.29 Hgb 14.9 Hct 41.8 MCV 79.0 L MCH 28.2 MCHC 35.6 H RDW 12.5 Plt Count 171 MPV 9.8 Immature Gran % 0.4 Seg Neutrophils % 46.1 Lymphocytes % 28.7 Monocytes % 8.6 Eosinophils % 15.2 Basophils % 1.0 Neutrophils # 3.7 Lymphocytes # 2.3 Monocytes # 0.7 Eosinophils # 1.2 H Basophils # 0.1 APTT 77.1 H Fibrinogen 382 Heparin Anti-Xa, Unfract Sodium Potassium Chloride Carbon Dioxide BUN Creatinine Est GFR ( Amer) Est GFR (Non-Af Amer) BUN/Creatinine Ratio Glucose Calculated Osmolality Calcium Troponin I Triglycerides 95 Cholesterol 90 LDL Cholesterol, Calc 48 VLDL Cholesterol, Calc 19 HDL Cholesterol 23 L Cholesterol/HDL Ratio 3.9 3 06/08/18 01:36 WBC RBC Hgb Hct MCV MCH MCHC RDW Plt Count MPV Immature Gran % Seg Neutrophils % Lymphocytes % Monocytes % Eosinophils % Basophils % Neutrophils # Lymphocytes # Monocytes # Eosinophils # Basophils # APTT Fibrinogen Heparin Anti-Xa, Unfract 0.68 Sodium Potassium Chloride Carbon Dioxide BUN Creatinine Est GFR ( Amer) Est GFR (Non-Af Amer) BUN/Creatinine Ratio Glucose Calculated Osmolality Calcium Troponin I Triglycerides Cholesterol LDL Cholesterol, Calc VLDL Cholesterol, Calc HDL Cholesterol Cholesterol/HDL Ratio Consult Discharge Plan - Plan Instructions: Rivaroxaban (By mouth), Pulmonary Embolism (DC) Referrals: Valencia Izaguirre [Primary Care Provider] - 06/14/18 11:30 am Prescriptions: Rivaroxaban [Xarelto] 1 dose PO AD 30 Days #1 pack <Nicolas Sanchez - Last Filed: 06/09/18 18:17> Date of Encounter: 06/09/18 - Data of Consult Requesting Physician: Shaun Garay MD Primary Care Provider: Valencia Izaguirre - Consult Narrative History of present illness: Patient appeared comfortable denied any pain/swelling. Prior w/u reviewed- hypercoagulable w/u is negative. CTA, echo, doppler findings reviewed. To be d/zofia for group home anticoagulation with oral agents. I examined this patient and my medical decision-making was reviewed with the Advanced Practice Nurse. I agree with the documented findings, disposition and treatment plan as described except to the extent set forth below. Oncology - Exam - Constitutional Vitals: Temp Pulse Resp BP Pulse Ox 97.9 F 72 14 115/86 95 06/09/18 11:38 06/09/18 11:38 06/09/18 11:38 06/09/18 11:38 06/09/18 11:38 Oncology - Results Labs: 3 06/09/18 06/09/18 06/09/18 07:41 03:34 03:34 WBC 8.0 RBC 5.07 Hgb 13.8 Hct 40.0 MCV 78.9 L MCH 27.2 L MCHC 34.5 RDW 12.8 Plt Count 180 MPV 9.9 Immature Gran % 0.4 Seg Neutrophils % 48.5 Lymphocytes % 28.0 Monocytes % 7.9 Eosinophils % 14.1 Basophils % 1.1 Neutrophils # 3.9 Lymphocytes # 2.2 Monocytes # 0.6 Eosinophils # 1.1 H Basophils # 0.1 APTT Fibrinogen Heparin Anti-Xa, Unfract 0.41 Sodium 138 Potassium 3.5 Chloride 106 Carbon Dioxide 25 BUN 10 Creatinine 0.81 Est GFR ( Amer) > 60 Est GFR (Non-Af Amer) > 60 BUN/Creatinine Ratio 12 Glucose 117 H Calculated Osmolality 286 Calcium 9.0 Troponin I Triglycerides Cholesterol LDL Cholesterol, Calc VLDL Cholesterol, Calc HDL Cholesterol Cholesterol/HDL Ratio Homocysteine 3 06/08/18 06/08/18 06/08/18 13:40 07:44 03:18 WBC RBC Hgb Hct MCV MCH MCHC RDW Plt Count MPV Immature Gran % Seg Neutrophils % Lymphocytes % Monocytes % Eosinophils % Basophils % Neutrophils # Lymphocytes # Monocytes # Eosinophils # Basophils # APTT Fibrinogen Heparin Anti-Xa, Unfract 0.58 Sodium 137 Potassium 3.5 Chloride 105 Carbon Dioxide 24 BUN 13 Creatinine 0.90 Est GFR ( Amer) > 60 Est GFR (Non-Af Amer) > 60 BUN/Creatinine Ratio 14 Glucose 140 H Calculated Osmolality 286 Calcium 9.0 Troponin I < 0.03 Triglycerides Cholesterol LDL Cholesterol, Calc VLDL Cholesterol, Calc HDL Cholesterol Cholesterol/HDL Ratio Homocysteine 3 06/08/18 06/08/18 06/08/18 03:18 03:18 03:18 WBC 8.1 RBC 5.29 Hgb 14.9 Hct 41.8 MCV 79.0 L MCH 28.2 MCHC 35.6 H RDW 12.5 Plt Count 171 MPV 9.8 Immature Gran % 0.4 Seg Neutrophils % 46.1 Lymphocytes % 28.7 Monocytes % 8.6 Eosinophils % 15.2 Basophils % 1.0 Neutrophils # 3.7 Lymphocytes # 2.3 Monocytes # 0.7 Eosinophils # 1.2 H Basophils # 0.1 APTT Fibrinogen Heparin Anti-Xa, Unfract Sodium Potassium Chloride Carbon Dioxide BUN Creatinine Est GFR ( Amer) Est GFR (Non-Af Amer) BUN/Creatinine Ratio Glucose Calculated Osmolality Calcium Troponin I Triglycerides 95 Cholesterol 90 LDL Cholesterol, Calc 48 VLDL Cholesterol, Calc 19 HDL Cholesterol 23 L Cholesterol/HDL Ratio 3.9 Homocysteine 8 3 06/08/18 06/08/18 03:18 01:36 WBC RBC Hgb Hct MCV MCH MCHC RDW Plt Count MPV Immature Gran % Seg Neutrophils % Lymphocytes % Monocytes % Eosinophils % Basophils % Neutrophils # Lymphocytes # Monocytes # Eosinophils # Basophils # APTT 77.1 H Fibrinogen 382 Heparin Anti-Xa, Unfract 0.68 Sodium Potassium Chloride Carbon Dioxide BUN Creatinine Est GFR ( Amer) Est GFR (Non-Af Amer) BUN/Creatinine Ratio Glucose Calculated Osmolality Calcium Troponin I Triglycerides Cholesterol LDL Cholesterol, Calc VLDL Cholesterol, Calc HDL Cholesterol Cholesterol/HDL Ratio Homocysteine
[2018-06-09 04:09] LABS: Basophils # 0.1 K/mcL (0.0-0.2); Basophils % 1.1 %; Eosinophils # 1.1 K/mcL (0.0-0.6); Eosinophils % 14.1 %; Hemoglobin 13.8 g/dL (12.9-16.9); Immature Granulocytes % 0.4 % (0-4); Lymphocytes # 2.2 K/mcL (0.6-4.6); Mean Corpuscular HGB Conc 34.5 g/dL (31.6-35.5); Mean Corpuscular Hemoglobin 27.2 pg (28.0-33.3); Mean Corpuscular Volume 78.9 fL (83.0-100.0); Mean Platelet Volume 9.9 fL (9.4-12.4); Monocytes # 0.6 K/mcL (0.0-1.3); Monocytes % 7.9 %; Neutrophils # 3.9 K/mcL (1.6-8.9); Platelet Count 180 K/mcL (140-400); Red Blood Count 5.07 M/mcL (4.19-5.50); Red Cell Distribution Width 12.8 % (11.5-14.5); Segmented Neutrophils % 48.5 %
[2018-06-09 04:28] LABS: BUN/Creatinine Ratio 12 (6-26); Blood Urea Nitrogen 10 mg/dL (6-20); Carbon Dioxide 25 mEq/L (23-29); Chloride 106 mEq/L (98-107); Glucose 117 mg/dL (70-105); Osmolality,Calculated 286 (280-300); Potassium 3.5 mEq/L (3.5-5.1); Sodium 138 mEq/L (136-145); eGFR For Non-African Americans > 60 (> 60)
[2018-06-09] MEDS: Heparin 25,000 UNIT/500 ML D5W 25,000 UNIT/500 ML BAG IVC SCH (06:32)
[2018-06-09] MEDS: Febuxostat [Uloric] 40 MG PO SCH (07:16)
[2018-06-09 11:41] VITALS: BP 115/86
--- NOTE | 2018-06-09 11:49 | Pulmonology Progress Note ---
<VesnaSedrick ruvalcaba - Last Filed: 06/09/18 11:47> Date of Encounter: 06/09/18 Time of Encounter: 11:47 Assessment and Plan (1) Pulmonary embolism Status: Acute Patient remains hemodynamically stable without hypoxia or tachycardia. Currently on heparin drip. Recommend transitioning to Xarelto. As this is patient's second occurrence of venous thromboembolic disease patient will require lifelong anticoagulation. Patient is stable for discharge from a pulmonary standpoint. Recommend outpatient sleep study and pulmonary follow-up to treat any other underlying lung disease/sleep disordered breathing that could increase the strain on his right heart. Qualifiers: Pulmonary embolism type: other Chronicity: acute Acute cor pulmonale presence: without acute cor pulmonale Qualified Code(s): I26.99 - Other pulmonary embolism without acute cor pulmonale (2) Pulmonary nodule Status: Acute Incidentally found on CT. Discussed with patient. Recommend follow-up as an outpatient. (3) DVT (deep venous thrombosis) Status: Acute Right lower extremity ultrasound positive for DVT, likely source of patient's pulmonary embolism. Plan for long-term anticoagulation as above. Qualifiers: DVT location: lower extremity Affected thrombotic vein of extremity: unspecified lower extremity proximal vein Chronicity: acute Laterality: right Qualified Code(s): I82.4Y1 - Acute embolism and thrombosis of unspecified deep veins of right proximal lower extremity (4) Nicotine dependence Status: Chronic Recommend smoking cessation. Qualifiers: Nicotine product type: other Substance use status: unspecified nicotine- induced disorder Qualified Code(s): F17.299 - Nicotine dependence, other tobacco product, with unspecified nicotine-induced disorders Subjective Principal diagnosis: Pulmonary embolism Interval history: Patient seen and examined bedside. Patient has no complaints morning. He denies chest pain, shortness of breath. He has been up moving around without difficulty. He denies leg pain, lower extremity swelling. Objective PUL Vital signs: Last Vital Signs Temp 97.9 F 06/09/18 11:38 Pulse 72 06/09/18 11:38 Resp 14 06/09/18 11:38 BP 115/86 06/09/18 11:38 Pulse Ox 95 06/09/18 11:38 General appearance: no acute distress ENT: oropharynx moist Effort: normal Auscultation: bilateral: clear Cardiovascular: regular rate and rhythm Gastrointestinal: normoactive bowel sounds Extremities: edema (Mild nonpitting edema in the right lower extremity) normal mental status, non-focal exam Results - Laboratory Findings CBC and BMP: 06/09/18 03:34 06/09/18 03:34 PT/INR, D-dimer PT 14.7 Seconds (9.4-12.1) H 06/07/18 19:48 D-Dimer 33655 ng/mLFEU (0-500) H 06/07/18 17:03 Abnormal lab findings: Abnormal lab results MCV 78.9 fL (83.0-100.0) L 06/09/18 03:34 MCH 27.2 pg (28.0-33.3) L 06/09/18 03:34 Eosinophils # 1.1 K/mcL (0.0-0.6) H 06/09/18 03:34 PT 14.7 Seconds (9.4-12.1) H 06/07/18 19:48 APTT 77.1 Seconds (26.0-36.0) H 06/08/18 03:18 D-Dimer 61565 ng/mLFEU (0-500) H 06/07/18 17:03 Glucose 117 mg/dL (70-105) H 06/09/18 03:34 HDL Cholesterol 23 mg/dL (40-59) L 06/08/18 03:18 - Clinical Findings Intake & Output: Intake & Output 06/08/18 06/09/18 06/09/18 23:59 07:59 15:59 Intake Total 421 / 421 1300 / 1300 120 / 120 Output Total 975 / 975 900 / 900 Balance -554 / -554 400 / 400 120 / 120 Weight 155 kg - VTE Documentation of Mechanical Device: Intermittent pneumatic compression device Consult Discharge Plan - Plan Instructions: Rivaroxaban (By mouth), Pulmonary Embolism (DC) Referrals: Valencia Izaguirre [Primary Care Provider] - 06/14/18 11:30 am Prescriptions: Rivaroxaban [Xarelto] 1 dose PO AD 30 Days #1 pack <Arina Zuluaga M - Last Filed: 06/09/18 15:37> Date of Encounter: 06/09/18 Objective PUL Vital signs: Last Vital Signs Temp 97.9 F 06/09/18 11:38 Pulse 72 06/09/18 11:38 Resp 14 06/09/18 11:38 BP 115/86 06/09/18 11:38 Pulse Ox 95 06/09/18 11:38 Results - Laboratory Findings CBC and BMP: 06/09/18 03:34 06/09/18 03:34 PT/INR, D-dimer PT 14.7 Seconds (9.4-12.1) H 06/07/18 19:48 D-Dimer [id number] ng/mLFEU (0-500) H 06/07/18 17:03 Abnormal lab findings: Abnormal lab results MCV 78.9 fL (83.0-100.0) L 06/09/18 03:34 MCH 27.2 pg (28.0-33.3) L 06/09/18 03:34 Eosinophils # 1.1 K/mcL (0.0-0.6) H 06/09/18 03:34 PT 14.7 Seconds (9.4-12.1) H 06/07/18 19:48 APTT 77.1 Seconds (26.0-36.0) H 06/08/18 03:18 D-Dimer 00335 ng/mLFEU (0-500) H 06/07/18 17:03 Glucose 117 mg/dL (70-105) H 06/09/18 03:34 HDL Cholesterol 23 mg/dL (40-59) L 06/08/18 03:18 - Clinical Findings Intake & Output: Intake & Output 06/08/18 06/09/18 06/09/18 23:59 07:59 15:59 Intake Total 421 / 421 1300 / 1300 120 / 120 Output Total 975 / 975 900 / 900 Balance -554 / -554 400 / 400 120 / 120 Weight 155 kg - Attending Attestation I examined this patient and my medical decision-making was reviewed with the Resident Physician. I agree with the documented findings, disposition and treatment plan as described except to the extent set forth below. Patient seen and examined. Labs, radiology, chart personally reviewed. Agree with resident's history and physical, assessment, plan with following comments: FLANGE TURNER: Patient follows commands, Pulmonary: Acceptable oxygenation and ventilation. Patient remained hemodynamically stable and as indicated in the consultation and patient will need follow-up as outpatient after sleep study. Please call for any questions. Cardiovascular: stable
[2018-06-09] MEDS ORDERED: *HR* Rivaroxaban 15 MG TABLET PO SCH (12:30)
--- NOTE | 2018-06-09 13:04 | Discharge Summary ---
- NOTES TO OUTPATIENT PROVIDER Notes to Outpatient Provider: Sleep study on OPD basis and pulmonary follow-up- as a scheduled by upper cutter. Repeat CT chest in 12 months for pulmonary nodule or as per upper cutter advice. Keep appointment with parcel post carrier in 2 weeks. Follow-up with PCP within one week Orders not resulted at time of discharge: Pending orders 06/08/18 03:18 Antithrombin III, Activity Routine Factor V Leiden Routine Lupus Anticoagulant Panel Routine Protein C Antigen, Total Routine Protein C, Functional Routine Protein S Antigen, Total Routine Protein S, Functional Routine Prothrombin [id number] Mutation Routine 06/08/18 07:44 Platelet Function ([facility] only) [COAG] Timed 06/10/18 04:00 Heparin anti-factor XA UFH [COAG] AM 0400 Date of Encounter: 06/09/18 Time of Encounter: 13:02 - Discharge Diagnosis (1) Pulmonary embolism Priority: Primary Status: Acute Assessment and Plan: Bilateral pulmonary emboli with heart strain on CT PE. Previous history of DVT was anticoagulated with coumdain and then xarelto. Taken off of anticoagulation 2 years ago. Strong family history of hypercoagulability. Patient hemodynamically and clinically stable not requiring oxygen. Echocardiogram with RVOT. Consulted parcel post carrier and upper cutter and okay to discharge patient home with outpatient follow-up. Pulmonologists recommended outpatient sleep study and a scheduled appointment. Off from IV heparin drip now and is started Xarelto . Qualifiers: Pulmonary embolism type: other Chronicity: acute Acute cor pulmonale presence: without acute cor pulmonale Qualified Code(s): I26.99 - Other pulmonary embolism without acute cor pulmonale (2) Gout Priority: Secondary Status: Chronic Assessment and Plan: Continue home medications. No acute flareup Qualifiers: Gout site: unspecified site Gout etiology: unspecified cause Chronicity: unspecified Qualified Code(s): M10.9 - Gout, unspecified (3) GERD (gastroesophageal reflux disease) Priority: Secondary Status: Chronic Assessment and Plan: Continue home medications. Qualifiers: Esophagitis presence: without esophagitis Qualified Code(s): K21.9 - Gastro -esophageal reflux disease without esophagitis (4) Nicotine dependence Priority: Secondary Status: Chronic Assessment and Plan: Counselled on smoking cessation. Not interested in nicotine replacement therapy at this time. Qualifiers: Nicotine product type: other Substance use status: unspecified nicotine- induced disorder Qualified Code(s): F17.299 - Nicotine dependence, other tobacco product, with unspecified nicotine-induced disorders Hospital course: Mr. Montano is a 37 year old male patient with history of DVT in the past but not on any anticoagulation at present got admitted for further management of bilateral pulmonary embolism. Please see details in diagnosis section of discharge summary. At the time of discharge patient is clinically and hemodynamically stable, ambulating well and tolerating oral diet. Patient is being discharged on xarelto dose pack - Time Spent with Patient Total time spent providing and/or coordinating discharge services: - Discharge Medications Prescriptions: Rivaroxaban [Xarelto] 1 dose PO AD 30 Days #1 pack Home Medications: Febuxostat [Uloric] 40 mg PO DAILY 06/07/18 [History] Indomethacin [Indomethacin] 50 mg PO TID PRN 06/07/18 [History] Omeprazole [PriLOSEC] 20 mg PO DAILY 06/07/18 [History] Rivaroxaban [Xarelto] 1 dose PO AD 30 Days #1 pack 06/08/18 [Rx] Allergies/Adverse Reactions: 3 Allergy/AdvReac Type Severity Reaction Status Date / Time No Known Allergies Allergy Verified 06/07/18 20:36 Date of admission: 06/07/18 22:41 Primary care physician: Valencia Izaguirre Consults: 06/08/18 02:10 Consult to Physical Therapy [CONS] Routine Comment: Evaluate, develop and implement POC Reason for Consult: Pulmonary Embolism, Dyspnea with Exertion. Please evaluate, treat, and determine rehab needs. Thanks. Does patient have active BEDREST order?: No Is patient medically & hemodynamically stable?: Yes Patient assessed for mobility or mobilized this visit?: No Consult to Medical Management Trainer [CONS] Routine Reason for SW Consult: Determine coverage of xarelto by insurance. Thanks. 06/08/18 12:26 Consult to Oncology Hematology [CONS] Routine Consulting Provider: Leanna Chun Reason for Consult: PE Call Completed: Yes 06/08/18 12:56 Consult to Pulmonology [CONS] Routine Consulting Provider: [facility] Kim Reason for Consult: PE Call Completed: Yes - Constitutional Vitals: Temp Pulse Resp BP Pulse Ox 97.9 F 72 14 115/86 95 08/01/18 11:38 06/09/18 11:38 06/09/18 11:38 06/09/18 11:38 06/09/18 11:38 General appearance: Present: cooperative, A&O X 3, pleasant, no acute distress, obese, answers questions appropriately Exam: General appearance: No acute distress, A&O X 3 Head exam: Atraumatic Eye exam: EOMI, PERRLA ENT exam: Moist oral mucosa Neck nontender, supple Respiratory exam: Clear to auscultation bilaterally Cardiovascular exam: Regular rate and rhythm, no systolic murmur Abdominal exam: Soft, nontender, nondistended, positive bowel sounds Extremities exam: No calf tenderness, no pedal edema Present: Neurological exam: Grossly intact - Patient Status Disposition: Home, Self-Care Condition: Good Overall status at discharge: patient is back to baseline - Discharge Instructions Follow Up With: Valencia Izaguirre [Primary Care Provider] - 06/14/18 11:30 am - Diet and Activity Activity: increase activity as tolerated - VTE Documentation of Mechanical Device: Intermittent pneumatic compression device
--- NOTE | 2018-06-09 13:31 | Oncology Inp Progress Note ---
Date of Encounter: 06/09/18 Time of Encounter: 12:30 (1) Pulmonary embolism Current Visit: Yes Status: Acute Assessment and plan: CTA revealed extensive acute bilateral pulmonary emboli, enlargement of the right ventricle with RV/LV ratio greater than 1, a Small area of non solid opacity inferolateral right lower lobe may reflect atelectasis or pulmonary infarct or a small amount of airspace disease and a 3 mm size right lower lobe pulmonary nodule. BNP and troponin normal. Echo reveals LVEF 60%, normal right ventricular size/ function, RVOT is dilated, mild pulmonary hypertension. He is hemodynamically stable, no tachycardia or hypoxia. SOB on exertion has resolved, he has been ambulating around unit with no report of SOB. Preliminary venous doppler reveals a thrombus seen in the right distal iliac, right common femoral, right superficial femoral, right popliteal, posterior tibial and right peroneal vein. He has had extensive prior hemophilia workup which was negative for" Protein C and S, antithrombin III, Factor V Leiden, prothrombin gene mutation and lupus anticoagulant. Recheck [id number] was previously on folic acid with history of mildly elevated homocysteine level Plan: Transitioning to Xarelto today with plans to discharge home later Recommendation for anticoagulation indefinitely with history of DVT and now extensive PE with RLE DVT He was given an appointment card today with information to follow up with Dr. [place] in about 2 weeks time He was educated to ambulate when traveling 2 hours or more at one time Appreciate pulmonary recommendations, planning for outpatient sleep study to evaluate for sleep apnea in setting of RVOT dilation Qualifiers: Pulmonary embolism type: other Chronicity: acute Acute cor pulmonale presence: without acute cor pulmonale Qualified Code(s): I26.99 - Other pulmonary embolism without acute cor pulmonale (2) Pulmonary nodule Current Visit: Yes Status: Acute Assessment and plan: CTA reveals 3 mm right lower lobe pulmonary nodule. Consider repeat CT per Fleischner Society guidelines. Oncology: Subj Interval history: Mr. Montano is sitting in the chair, his is at bedside. He denies chest pain , SOB, or pain with inspiration. He denies lower extremity pain. He has been ambulating without difficulty. Sating well on room air. Hopeful for discharge later today - Constitutional Vitals: Vital Signs Temp Pulse Resp BP Pulse Ox 06/09/18 11:38 97.9 F 72 14 115/86 95 06/09/18 07:17 64 06/09/18 07:03 97.7 F 59 16 100/62 95 06/09/18 03:22 97.8 F 64 18 102/62 95 06/08/18 23:35 97.7 F 74 20 111/69 96 06/08/18 19:00 97.7 F 73 18 124/88 91 06/08/18 16:29 98.4 F 70 18 128/82 97 06/08/18 15:25 67 Intake and Output 06/08/18 06/09/18 06/09/18 23:59 07:59 15:59 Intake Total 421 / 421 1300 / 1300 120 / 120 Output Total 975 / 975 900 / 900 Balance -554 / -554 400 / 400 120 / 120 Intake: IV Fluids 421 / 421 500 / 500 Heparin 25,000 UNIT/500 ML D5W 421 / 421 500 / 500 25,000 unit In 500 ml @ 14 UNIT /KG/HR 43.411 mls/hr IVC . [id number] ZACK Rx#:[id number] Oral 800 / 800 120 / 120 Output: Urine 975 / 975 900 / 900 Other: Meal Dinner Breakfast Percent of Meal Consumed 60% 40% Weight 155 kg Patient Weight 06/09/18 23:59 Weight 155 kg General appearance: cooperative, no acute distress, no febrile - Head Head exam: Present: atraumatic - ENT ENT exam: Present: mucous membranes moist - Respiratory Respiratory exam: Present: CTAB. Absent: respiratory distress - Cardiovascular Cardiovascular exam: Present: RRR, +S1, +S2 - GI/Abdominal GI/Abdominal exam: Present: normal bowel sounds, soft. Absent: guarding, rebound, tenderness - Extremities Exam Extremities exam: Present: normal inspection. Absent: calf tenderness - Neurological Exam Neurological exam: Present: alert, oriented X3, no focal deficits, strengths equal and symetr throughout - Psychiatric Psychiatric exam: Present: normal affect, normal mood - Skin Skin exam: Present: dry, intact, normal color, warm Oncology: Obj Data - Labs CBC & Chem 7: 06/09/18 03:34 06/09/18 03:34 - ABG Interpretation ABG results: PT/INR, D-dimer PT 14.7 Seconds (9.4-12.1) H 06/07/18 19:48 D-Dimer 39842 ng/mLFEU (0-500) H 06/07/18 17:03 Consult Discharge Plan - Plan Instructions: Rivaroxaban (By mouth), Pulmonary Embolism (DC) Referrals: Valencia Izaguirre [Primary Care Provider] - 06/14/18 11:30 am Prescriptions: Rivaroxaban [Xarelto] 1 dose PO AD 30 Days #1 pack
--- NOTE | 2018-06-09 21:07 | Electrocardiograph Report ---
[address] [place], [place] [address] Test Date: 2018-06-07 Pat Name: Leonides Montano Department: [id number] Room: 2N05 Gender: M [employer] Administrator: TOMMY : 1980 Requested By: Vadim Jesus Order Number: [id number] Reading MD: Graciela Hernandez Measurements Intervals [place] Rate: 86 P: 27 CT: 169 QRS: 20 QRSD: 110 T: 39 QT: 362 QTc: 405 Interpretive Statements SINUS RHYTHM LOW QRS VOLTAGE IN PRECORDIAL LEADS MINIMAL ST DEPRESSION Electronically Signed On 06-09-2018 17:30:51 EDT by Graciela Hernandez
[2018-06-14 07:14] LABS: Plt Function Epi Closure Time 99 Seconds (74-171)
[2018-06-14 07:15] LABS: Plt Function ADP Closure TIME 73 Seconds (57-162)
== END 2018-06-09 14:40 | disposition home or self-care (01) ==
LOC: 2NNU 15:41 → EMEROO 15:41 → 2NNU 23:07
PROVIDERS: ADMIT Family Medicine; ATTEND Family Medicine

== ENCOUNTER 2021-11-12 23:50 | Observation (INO) ==
[2021-11-13] MEDS ORDERED: Isovue-370 500 ML BOTTLE IVP ONE (03:43)
[2021-11-13 04:18] LABS: Basophils % 0.6 %; Eosinophils # 0.1 K/mcL (0.0-0.6); Eosinophils % 1.2 %; Hematocrit 44.7 % (37.5-50.1); Hemoglobin 15.5 g/dL (12.9-16.9); Immature Granulocytes % 0.3 % (0-4); Lymphocytes % 29.9 %; Mean Corpuscular HGB Conc 34.7 g/dL (31.6-35.5); Mean Corpuscular Hemoglobin 28.3 pg (28.0-33.3); Mean Corpuscular Volume 81.6 fL (83.0-100.0); Mean Platelet Volume 11.2 fL (9.4-12.4); Monocytes # 0.5 K/mcL (0.0-1.3); Monocytes % 7.6 %; Platelet Count 168 K/mcL (140-400); Red Blood Count 5.48 M/mcL (4.19-5.50); Red Cell Distribution Width 12.7 % (11.5-14.5); Segmented Neutrophils % 60.4 %; White Blood Count 6.6 K/mcL (4.3-11.1)
[2021-11-13 04:27] LABS: INR 1.1; Prothrombin Time 12.4 Seconds (9.4-12.1)
[2021-11-13 04:30] LABS: Activated Partial Thrombo Time 33.1 Seconds (26.0-36.0)
[2021-11-13 04:35] LABS: BUN/Creatinine Ratio 20 (6-26); Blood Urea Nitrogen 19 mg/dL (6-20); Calcium 9.2 mg/dL (8.6-10.3); Carbon Dioxide 23 mEq/L (23-29); Chloride 107 mEq/L (98-107); Glucose 300 mg/dL (70-105); Osmolality,Calculated 293 (280-300); Potassium 4.1 mEq/L (3.5-5.1); Sodium 135 mEq/L (136-145); eGFR For African Americans > 60 (> 60); eGFR For Non-African Americans > 60 (> 60)
[2021-11-13 04:36] LABS: Troponin I < 0.03 ng/mL (< 0.04)
[2021-11-13 05:54] VITALS: O2SAT 97
[2021-11-13] MEDS ORDERED: Aspirin 325 MG TABLET PO ONE (06:05)
[2021-11-13] MEDS ORDERED: Naloxone 0.4 MG/ML INJ IVP PRN (07:53)
[2021-11-13] MEDS ORDERED: Dextrose Gel 15 GM/37.5 ML TUBE PO PRN ×2 (07:55)
[2021-11-13] MEDS ORDERED: D5% in Water 1,000 ML IVC PRN (07:55)
[2021-11-13] MEDS ORDERED: *HR* Dextrose 50 % in Water (Syg) 50 ML SYRINGE IVP PRN (07:55)
[2021-11-13] MEDS ORDERED: Insulin LISPRO 300 UNITS/3 ML VIAL SUBQ SCH ×2 (11:30→21:00)
[2021-11-13 15:23] VITALS: BP 132/90; PULSE 67; TEMP 98.1
== END 2021-11-13 16:01 | disposition home or self-care (01) ==
LOC: 3BNU 23:50 → EMEROOARM 23:50 → 3BNU 11-13 06:29
PROVIDERS: ADMIT Internal Medicine; ATTEND Internal Medicine